=== PATIENT | female | born 1985 | race Caucasian/White ===

== ENCOUNTER 2016-07-09 11:10 | Emergency (ER) | payer MEDICAID ==
[~2016-07-09] VITALS: Ht 162.6 cm; Wt 48.5 kg
--- NOTE | 2016-07-09 11:51 | [facility] Report ---
History of Present Issue Date/Time Seen by Provider 07/09/16 1151 Visit Reason Pt arrived:Walked Presenting Problem:CONGESTED, COUGH Location if Accident: Onset of symptoms date/time:/ or onset unknown for:MEDICAL HX UNKNOWN Have you (or family members/close friends) recently traveled outside the [place]? N If Yes, where/when: Have you had exposure to infectious disease within the past month? TB? Other? Specify: here w/ young son c/o cough, nasal congestion, rhinorrhea. Started w/ sore throat but that has already resolved. No fever, aches, chills. Cough and nasal congestion no better w/ OTC sinus/congestion pills and some other unknown gel pill "for these symptoms". Son now has similiar symptoms. Denies SOA, wheezing. Source patient Exam Limitations no limitations ALLERGIES Coded Allergies: No Known Allergies (07/09/16) Home Medications Reported Medications No Known Home Medications History Medical History General CAD? No Angina: No AR: No Hypertension? No Hyperlipidemia? No CHF? No DVT? No PE? No COPD? No Asthma? No Anemia? No GERD? No Gastric ulcers? No GI Bleed? No Hernia? No Thyroid Problems? No Hypothyroidism? No CVA? No Seizures? No Diabetes? No Renal Insuffiency? No UTI? No Stones? No BPH? No GB Disease: No Nephritic Syndrome? No Asplenia? No Hepatitis? No Sickle Cell Disease? No Arthritis? No Migraines? No Cataracts? No Glaucoma? No MRSA? No HIV? No TB? No Anxiety? No Depression? No Cancer? No More? No Immunization HX DT/Tetanus 5-10 YRS Surgical Hx Previous Surgery?N Social History Smoking Hx Smoker: Never Smoker Tobacco: No Alcohol Alcohol: No Review of Systems All Other Systems Reviewed and Negative Constitutional see HPI Eyes denies drainage ENT see HPI. denies: ear pain, ear discharge. Respiratory see HPI Cardiovascular denies chest pain Gastrointestinal denies no symptoms reported Musculoskeletal see HPI Psychiatric/Neurological denies headache Physical Exam Vital Signs Vital Signs Date Time Temp Pulse Resp B/P Pulse O2 O2 Flow FiO2 Ox Delivery Rate 07/09 1131 97.9 87 16 110/64 98 General Appearance normal appearance, no apparent distress Eye Exam - bilateral eye normal exam Ear, Nose, Throat nasal congestion, clear rhinorrhea, normal EACs and TMs Neck non-tender, supple Respiratory Status No: respiratory distress (no witnessed cough). Lung Sounds anterior: lungs clear. posterior: lungs clear. bilateral: lungs clear. Cardiovascular regular rate/rhythm, no murmur Neurologic alert Skin normal color, warm/dry Lymphatic no adenopathy (cervical) Medical Decision Making LABS/Meds/Orders Pt receiving controlled substance in ED? No Departure Departure Time of Disposition 1157 Disposition DC Home or Self Care(routine) Clinical Impression Primary Impression: Upper respiratory virus Condition STABLE Patient Instructions DI for Viral Upper Respiratory Infection -- Adult Additional Instructions Virus will typically run it's course in 7-14 days. Increase fluids Sleep elevated humidifier/vaporizer nasal saline or flonase for nasal congestion. Flonase will take a few days to notice difference Monitor for fever. You would not expect it at this point so be sure to get seen if occurs. Cough syrup as needed. May or may not cause drowsiness. Know how it will effect you before driving or caring for small children. Does contain antihistamine so no claritin, zyrtec, bethany, benadryl necessary. Helps w/ cough but also drainage Follow up primary care for new or worsening symptoms or no noticeable improvement over next 3 days. Discharge Counseling Counseled pt/family regarding diagnosis, medications/RX, home care, follow up needs Prescriptions Current Visit Scripts D-METHORPHAN HB/P-EPD HCL/BPM (Bromfed Dm Cough Syrup) 10 ML PO QID PRN cough #240 ML at 1222
[2016-07-09] MEDS ORDERED: BROMFED DM COU118 ML PO (12:20)
[2016-07-09 12:24] VITALS: BP 110/64
== END 2016-07-09 12:28 | disposition home or self-care (01) ==
LOC: UTC 11:10
DX: J06.9 Acute upper respiratory infection, unspecified (principal)